=== PATIENT | female | born 1955 | race Caucasian/White ===

== ENCOUNTER 2018-08-30 23:39 | Emergency (ER) | payer OTHER, SELFPAY ==
[2018-08-30 23:41] VITALS: BP 131/78; PULSE 96; RESP 16; TEMP 36.7; O2SAT 96; BMI 23.5
[2018-08-30] MEDS: fentaNYL 100 MCG/2 ML Ampul 50 MCG IM (23:58)
[2018-08-30] MEDS: Ondansetron ODT 4 MG Tablet PO (23:58)
--- NOTE | 2018-08-31 | RAD_ITS ---
STUDY: X-RAY - RIGHT WRIST REASON FOR EXAM: Female, 62 years old. Patient fell TECHNIQUE: 3 view(s) of the wrist were obtained. COMPARISON: None. FINDINGS: There is a nondisplaced fracture at the base of the ulnar styloid. A comminuted intra-articular fracture of the distal radius with dorsal tilt of the distal fragment but good maintenance of the radiocarpal articulation. There is soft tissue swelling about the wrist. RAD/Wrist min 3 Views IMPRESSION: A nondisplaced fracture at the base of the ulnar styloid. Intra-articular comminuted dorsally angulated fracture of the distal radius Electronically Signed: Migue Biswas MD at 0:33 EST Tel , Service support ,
--- NOTE | 2018-08-31 00:51 | ED.VISSUMM ---
- ER Visit Summary Date of Service: 08/31/18 Chief Complaint: Right wrist pain History of Present Illness: The patient is a [address] Huntley. She is right-hand dominant. She reports that she was dancing and fell. She complains of an isolated injury to her right wrist. She reports she has a sharp, throbbing pain is 10 out of 10 severity. Is worsened by movement. She denies any paresthesias distally. No other injuries. No loss of consciousness. No neck, back, shoulder, left wrist, or hip pain. Physical Examination: Vitals: Stable. Afebrile. Neck: No vertebral tenderness. Full ROM without difficulty. Cleared by NEXUS criteria. Back: No vertebral tenderness. General: A&O x 3. NAD. Cardiovascular exam: Regular rate and rhythm, no murmur, rub or gallop. Respiratory exam: Chest nontender. No crepitus. Clear to auscultation bilaterally. No wheezes or stridor. Abdominal exam: Soft, nontender, nondistended, normal bowel sounds. No pain in RUQ or LUQ specifically. No peritoneal signs. Extremity: Obvious deformity and severe tenderness palpation over the distal left radius. She has no pain over her elbow. She is neurovascular intact distally. Test Results: X-ray shows a comminuted, intra-articular distal radius and ulnar styloid fracture. Emergency Department Course and Treatment: Patient was treated with fentanyl IM and Zofran p.o. Given the appearance of this fracture I do not think that it would be stable for reduction. She was placed in a sugar tong splint. Treatment Plan: Patient would like to follow-up with Dr. Koroma. She is instructed to see him within 5-7 days for another exam. She is given Percocet and Zofran. Return to the emergency department for any worsening symptoms. Disposition: To home in improved and stable condition. Impression: 1. Right distal radius/ulnar styloid fractures. 2. Sugar tong splint, fabricated. This note was generated with [employer] dictation software. It may contain incorrect words, spelling, and punctuation that were not noted in review of the chart prior to signing ED Disposition - Plan for ED Patient: Disposition: Home or Assisted Living Chief Complaint: Upper Extremity Injury Instructions: ED Fx Colles Wrist No Redu Requ Prescriptions: Oxycodone HCl/Acetaminophen [Percocet 5/325] 1 tablet PO Q6H PRN PRN 5 Days #20 tablet PRN Reason: Pain Ondansetron [Zofran Odt] 4 mg PO Q8H PRN PRN #10 tablet PRN Reason: Nausea Referrals: Clarence Koroma MD [STAFF PHYSICIAN] - 5-7 Days
[2018-08-31] MEDS: oxyCODONE 5 MG Tablet PO (01:56)
[2018-08-31] MEDS: Ondansetron ODT 4 MG Tablet PO (01:57)
[2018-08-31 02:01] VITALS: BP 124/60; PULSE 75; RESP 16; O2SAT 98
== END 2018-08-31 02:01 | disposition home or self-care (01) ==
LOC: ED 08-31 00:46
PROVIDERS: Emergency Provider Emergency Medicine; Family Provider Family Medicine; PCP Family Medicine
DX: S52.571A Other intraarticular fracture of lower end of right radius, initial encounter for closed fracture (principal); S52.614A Nondisplaced fracture of right ulna styloid process, initial encounter for closed fracture; W19.XXXA Unspecified fall, initial encounter; Y93.41 Activity, dancing; Y92.9 Unspecified place or not applicable; Y99.9 Unspecified external cause status; M35.00 Sjogren syndrome, unspecified; Z79.899 Other long term (current) drug therapy
CPT/HCPCS: 29125; 73110; 96372; 99283

== ENCOUNTER 2018-12-06 09:30 | Outpatient (RCR) | payer OTHER, SELFPAY ==
--- NOTE | 2018-10-25 08:17 | HP.OTEVAL_ITS ---
Patient's Visit Information FELICITY MACIEL is a 63 year old F, referred to Occupational Therapy by Rishi Stovall MD, with a diagnosis of right colles fx. Date of Evaluation: 10/22/18 Occupational Therapist: Alison Nguyen, STEVE/Felicia, CHT - Subjective Subjective: This 63 year old female was seen for inital OT eval following a right ORIF. PT states she fell on New years. - went to ER placed in soft cast and had sx on Sep.07. pt states she just had her cast off last week. Pt states she is limited with ADLs and IADLs at this time- states pain comes and goes and is ready to get back to her PLOF. - ADLs Dressing: Coat, Shoes Fasteners: Tie shoes, Zippers Eating: Cut food Kitchen: Chop with knife, Peel fruits & vegetables, Open jars, Open bottle caps, Lift gallon of milk, Pour from pitcher, Take dish out of oven - Pain right wrist 2 Pain Intensity Range: 0, 5 - ROM Forearm: right sup 40 pron 60 left WNL Wrist: right 25/25 left 65/[address]10 UD 15 Opposition: 6 - Strength Wood Machinist Apprentice: right 5# left 60# Lateral Pinch: right 2# left 12# Tripod Pinch: right 2# left 12# Strength Comments: pt is right handed - Sensation Thumb: right 3.61 left 283 Index: right 3.84 left 2.83 Middle: right 2.83 left 2.83 Ring: right 2.83 left 2.83 Little: right 2.83 left 2.83 - Quick DASH-Disab of Arm,Shoulder& Hand Quick DASH Score: 43.1800 - Goals Goal:: PT will demo an increase in cold rolling machine setter strength by 30# to increase independent with basic occupations of daily living to return pt to PLOF by D/C. Goal:: Pt will demo an increase in wrist ROM equal to unaffected wrist to return pt to PLOF with grooming, dressing and home mtg tasks by D/C. pt will demo a increase in forearm sup/pron by 20* to increase pts ind. with ADLs and IADls by d/c. Goal:: pt will report no pain greater than 1/10 with use of right hand for ADls and IADLs by d/c Goal:: pt will demo understanding of scar mtg by end of 2nd session. - Rehabilitation General Assessment: Pt ORIF of right colles fx on 2018. pt had cast removed on 2018. pt demo with limited right wrist, forearm ROM and functional cold rolling machine setter and pinch strength. Pt demo with slight decline in sensation to right thumb and IF. Pt would benefit from skilled OT services 1-2x week for 4-6 weeks to return pt to OF. Today pt was ed. on PROM, AROM and scar mtg. pt demo understanding of ex, and was given handout. Rehabilitation Potential: Excellent - Anticipated Interventions Anticipated Interventions: A/AAROM/PROM, Strengthening, Scar Care, Desensitization, Modalities - Visit Plan Frequency: 1-2x /Week Duration: 4-6 Weeks TEXT: Thank you for the opportunity to evaluate your patient. For Medicare and Medicare HMO plans, please review the plan of care and approve it. It will need to be FAXED BACK to us at [phone] for Medicare purposes. Please let me know if there are questions or concerns regarding this plan of care. Physician Signature: Date:
--- NOTE | 2018-12-07 07:45 | HP.OTDCSUM_ITS ---
HP - OT D/C Summary It has been my pleasure to treat FELICITY MACIEL under orders from Rishi Stovall MD, for the diagnosis of right colles fx for a total of 8 visit(s). Please see the following information for a summary of their discharge status. - Overall Improvement % Improvement: 30 - Objective Objective/Function: right thumb- 3.84. right IF/MF 3.22. in regards to pts sensation, her right thumb has decreased in sensation ability indicating a loss of sensation. pts IF and MF have improved indicating a gain in sensation. right engine maintenance mechanic 30# left is 45#. wrist 55/40. rigth forearm supination WFL. right lateral pinch 10#. right tripod pinch 10#. right thumb IP 25* and after blocking pt gained 10* to 35* of flex. pt demo a decrease in IP flex- after ed pt on blocking ex she felt it was moving better and objective findings indicate gain in her ROM of 10*. pt has progressed with with her ROM and strength and can cont. with HEP to continue her progress. Pt agree to POC. - Goals Patient Goals: Regain Mobility, Regain Strength, Decrease Pain, Improve Fine Motor Skills, Use Hand/Wrist/Arm Normally Again Goal:: PT will demo an increase in engine maintenance mechanic strength by 30# to increase independent with basic occupations of daily living to return pt to PLOF by D/C. Goal:: Pt will demo an increase in wrist ROM equal to unaffected wrist to return pt to PLOF with grooming, dressing and home mtg tasks by D/C. pt will demo a increase in forearm sup/pron by 20* to increase pts ind. with ADLs and IADls by d/c. Goal:: pt will report no pain greater than 1/10 with use of right hand for ADls and IADLs by d/c Goal:: pt will demo understanding of scar mtg by end of 2nd session. - Plan Plan: HEP D/C - D/C Information Discharge Comments: PT was seen for 8 OT sessions. Therapy challenged pts return of right wrist ROM and strength. Pt demo improvments with both and reports INd. with most ADLs and IADLs. states pinch of toothpast is difficult and feels its related to limited IP flex. therapist addressed this by ed. pt on IP blocking and ROM ex. pt demo gains in ROM following. pt is great at following her HEP and has met OT goals, was D/C with HEP for pt to cont to make gains. Pt agrees to POC. If there are questions or concerns regarding this patient's occupational therapy, please fell free to call me at [phone]. Thank you for the referral of this patient. Sincerely, Alison Nguyen, OTR/L, CHT
== END 2018-12-06 19:00 | disposition home or self-care (01) ==
LOC: OT 09:30
PROVIDERS: Family Provider Family Medicine; PCP Family Medicine; Referring Provider Orthopaedic Surgery; Visit Provider Orthopaedic Surgery
DX: S52.531D Colles' fracture of right radius, subsequent encounter for closed fracture with routine healing (principal)
CPT/HCPCS: 97110; 97140; 97166; 97530

== ENCOUNTER 2020-03-20 18:49 | Emergency (ER) | payer OTHER, SELFPAY ==
[2020-03-20 18:50] VITALS: BP 109/50; PULSE 97; RESP 20; TEMP 36.6; O2SAT 97; BMI 22.4
--- NOTE | 2020-03-20 18:56 | EKG12_ITS ---
Test Reason : DYSRHYTHMIA Blood Pressure : / mmHG Vent. Rate : 088 BPM Atrial Rate : 088 BPM P-R Int : 206 ms QRS Dur : 072 ms QT Int : 374 ms P-R-T Axes : 067 047 057 degrees QTc Int : 452 ms Normal sinus rhythm Septal infarct , age undetermined Abnormal ECG Confirmed by CHAD RENEE ([id number]), film and video editor ALE LIRA ([id number]) on 03/26/2020 12:11:21 PM Referred By: ANGELITO Confirmed By:CHAD RENEE
--- NOTE | 2020-03-20 18:56 | RAD_ITS ---
STUDY: X-RAY CHEST REASON FOR EXAM: Female, 64 years old. Cough, severe headache, chills and shaking. TECHNIQUE: AP portable COMPARISON: None. FINDINGS: The lungs are clear and expanded. There is no demonstrated pleural abnormality. Normal size heart. Normal mediastinum and kareem. Normal visualized pulmonary arteries. Normal visualized aortic arch and descending thoracic aorta. Normal visualized thoracic spine. Normal visualized ribs, clavicles, and shoulders. There is no demonstrated abnormality of the visualized soft tissue structures of the upper abdomen. RAD/Chest 1 View (Portable) IMPRESSION: Normal x-ray examination of the chest. Electronically Signed: Naveen Pina MD at 19:57 EDT , Service support ,
--- NOTE | 2020-03-20 19:10 | ED.VIS.GEN ---
History of Present Illness Chief Complaint: Headache Informant: Patient Onset: Days Context: Gradual Onset Timing: Intermittent Current Severity: Moderate Maximum Severity: Moderate Narrative: The patient is an otherwise healthy 64-year-old female that presents to the emergency department with chills, nausea, vomiting, diarrhea. The patient states her symptoms began about a week ago. She states that she had some mild nausea and vomiting. She is also had some loose watery diarrhea. She denies fever. She denies shortness of breath or cough. She states that she was feeling better, but then her symptoms returned. She is had no known exposure to COVID. She denies any other sick contacts. She denies any abdominal pain, flank pain, or other systemic symptoms. Prior similar symptoms: No Recent Illness/Hospitalization: No Past Medical History - Allergies and Home Meds Allergies/Adverse Reactions: Allergies No Known Allergies Allergy (Verified 03/20/20 18:52) Primary Care Physician: Joe Huntley MD [Primary Care Provider] - Prior records reviewed: Yes Past Medical History: None Surgical History: noncontributory Smoking Status: Never smoker Review of Systems General: Reports: Chills. Denies: Fever, Sweats Eyes: Denies: Visual changes - bilaterally, Diplopia ENT: Denies: Rhinorrhea, Sore throat Cardiovascular: Denies: Chest pain, Palpitations Respiratory: Denies: Dyspnea, Cough, Dyspnea on exertion Gastrointestinal: Reports: Nausea, Vomiting, Diarrhea. Denies: Abdominal pain, Melena, Hematochezia Genitourinary: Denies: Dysuria, Hematuria, Frequency Musculoskeletal: Reports: Myalgias. Denies: Back pain, Extremity Pain Skin: Denies: Rash, Wounds Neurological: Reports: Headache. Denies: Weakness, Numbness Physical Exam Vital Signs/Narrative: Vital Signs Temp Pulse Resp BP Pulse Ox 03/20/20 18:50 97.8 F 97 20 H 109/50 L 97 Inital Vital Signs reviewed: Yes General: Well nourished, Well developed, No Acute Distress Head: Normocephalic, Atraumatic Eyes: Perrl, EOMI ENT: Moist mucous membranes, No rhinorrhea Neck: Supple, Nontender Cardiovascular: Regular rate, Regular rhythm, No murmurs Respiratory: No distress, CTA bilaterally, Chest nontender Abdomen: Soft, Nontender, Nondistended, Normal bowel sounds Back: Nontender, Normal Inspection Extremities: Nontender, No edema Skin: Normal color, No rash Neurological: Alert, Oriented x3, Cranial nerves II-XII grossly intact, Normal Strength, Normal Sensation Psychological: Normal affect, Normal Mood ED Disposition - Plan for ED Patient: Instructions: ED Headache Unspecified Prescriptions: Ondansetron [Zofran Odt] 4 mg PO Q8H PRN PRN #10 tab PRN Reason: Nausea Prescription Printed Referrals: Joe Huntley MD [Primary Care Provider] -
[2020-03-20] MEDS: Ondansetron 4 MG/2 ML Vial IV (20:22)
[2020-03-20] MEDS: Acetaminophen 500 MG Tablet 1000 MG PO (20:23)
[2020-03-20 20:25] LABS: Absolute Lymphocyte Count 2.58 X10^3/uL (0.83-4.51); Absolute Neutrophil Count 2.1 X10^3/uL (2.0-7.7); Basophil# 0.02 X10^3/uL; Basophil% 0.4 % (0-1); Eosinophil# 0.05 X10^3/uL; Hematocrit 41.1 % (37-47); Hemoglobin 13.3 g/dL (12.0-15.0); Lymphocyte # 2.58 X10^3/ul (4.0); Lymphocyte % 49.5 % (19-41); Mean Corp Hgb Conc 32.4 g/dL (32-36); Mean Corpuscular Hgb 29.2 pg (27.0-32.0); Mean Corpuscular Volume 90.3 fL (81-99); Monocyte# 0.47 X10^3/uL; NRBC Flagged by Analyzer 0 % (0-5); Neutrophil # 2.07 X10^3/uL (2.7-7.7); Neutrophil % 39.7 % (47-70); Platelet Count 207 K/mm3 (150-450); RBC Distribution Width CV 13.2 % (11.6-14.6); RBC Distribution Width SD 43.7 fl (35.1-43.9); Red Blood Count 4.55 M/mm3 (4.2-5.4); White Blood Count 5.2 K/mm3 (4.4-11.0)
[2020-03-20 20:26] VITALS: BP 157/119; PULSE 96; RESP 32; TEMP 36.6; O2SAT 98
[2020-03-20 20:41] LABS: AST(SGOT) 28 U/L (15-37); Alanine Aminotransfer ALT/SGPT 27 U/L (13-56); Albumin, Serum 3.7 g/dL (3.2-5.0); Alkaline Phosphatase 59 U/L (45-117); Anion Gap 3 (5-15); BUN 10 mg/dL (7-18); BUN/Creat Ratio 9.8 RATIO (10-20); Calcium,Total 8.7 mg/dL (8.5-10.1); Chloride 106 mmol/L (98-107); Creatinine, Serum 1.02 mg/dL (0.55-1.02); EST Glomerular Filtration Rate 58 mL/min (>60); Est Glom Filt Rate - Afr Amer 70 mL/min (>60); Globulin 3.7 g/dL (2.2-4.2); Glucose 79 mg/dL (74-106); Potassium 4.2 mmol/L (3.5-5.1); Protein, Total 7.4 g/dL (6.4-8.2); Sodium Level 141 mmol/L (136-145)
[2020-03-20 21:53] VITALS: BP 130/76; PULSE 97; RESP 17; O2SAT 94
[2020-03-21 00:21] LABS: Reflex Lactate? Y
== END 2020-03-20 21:54 | disposition home or self-care (01) ==
PROVIDERS: Emergency Provider Emergency Medicine; PCP Family Medicine
DX: R51 Headache (principal); R11.2 Nausea with vomiting, unspecified; R19.7 Diarrhea, unspecified; R68.83 Chills (without fever)
CPT/HCPCS: 36415; 71045; 80053; 83605; 85025; 87040; 87633; 87635; 93005; 96361; 96374; 99285; G2023; J7040; A4216; J2405; U0003

== ENCOUNTER 2024-03-06 07:02 | Emergency (ER) | payer MEDICARE, OTHER, SELFPAY ==
[2024-03-06 07:02] VITALS: BP 148/85; PULSE 78; RESP 20; TEMP 36.2; O2SAT 98; BMI 22.7
[2024-03-06] MEDS: Naproxen 500 MG Tablet PO (07:24)
[2024-03-06] MEDS: HYDROcodone Bitartrate/Apap 5/325 Tablet PO (07:24)
[2024-03-06] MEDS: Penicillin Vk 250 MG Tablet 500 MG PO (07:24)
--- NOTE | 2024-03-06 07:24 | ED.VIS.DENTA ---
HPI History of Present Illness Chief Complaint: Other, Pain/Inj Detail of Chief Complaint: Dental pain that started Thursday. Informant: patient and spouse/S.O. Onset/Context/Timing Onset: Days Context: Sudden Onset Timing: Continuous and Waxes and wanes Quality: Pain and swelling lower right incisor, suspect tooth #23 and 24 Current Severity: Moderate Maximum Severity: Severe Worsened by: Nothing Relieved by: - (Nothing) Associated Symptoms Assocated Symptom - Dental: jaw swelling and face swelling; Negative for fever, cold sensitivity or hot sensitivity Narrative Narrative: Patient is a 68-year-old woman with history of Sjogren's syndrome. She called her dentist on Thursday. They were closed. She presents now because of increased pain and swelling. She denies fever. She denies history medic fever, heart murmur mitral prolapse and there is no history of SBE. She has no allergies to medication. There is no history of peptic ulcer disease or renal disease. She does not have history of hypertension. She is able to open her mouth completely however complains of discomfort. She has had no drooling. Prior similar symptoms: No Recent Illness/Hospitalization: No PFSH PFSH Medical History (Updated 03/06/24 @ 07:[address] Surjit Rocha MD) Sjogren syndrome Home Medications ?Medication ?Instructions ?Recorded ?Last Taken ?Type cevimeline 30 mg capsule 1 cap PO TID 03/06/24 Unknown History hydrocodone-acetaminophen 5-325mg 1 tab PO Q6H PRN PRN Pain 3 days 03/06/24 Unknown Rx 5mg-325mg #10 TABLETS naproxen 500 mg tablet 500 mg PO BID #14 tabs 03/06/24 Unknown Rx penicillin V potassium 500 mg 500 mg PO 4X/DAY #40 tabs 03/06/24 Unknown Rx tablet Allergy/AdvReac Type Severity Reaction Status Date / Time No Known Allergies Allergy Verified 03/20/20 18:52 Social History (Updated 03/06/24 @ 07:[address] Surjit Rocha MD) household members: spouse Smoking Status: Never smoker ROS ROS ED Constitutional Constitutional ED: Denies chills, fever(s), subjective, sweats or weight loss Eyes Eyes: Denies blurry vision or change in vision ENT ENT ED: Reports other Details: HPI narrative ; Denies ear pain, rhinorrhea or sore throat Cardiovascular Cardiovascular: Denies palpitations Respiratory/Chest Respiratory/Chest: Denies dyspnea Gastrointestinal Gastrointestinal: Denies nausea or vomiting Integumentary Reports abscess; Denies rash Allergic/Immunologic Allergic/Immunologic ED: Reports mouth swelling; Denies tongue swelling or urticaria EXAM Physical Exam Const Vital Signs: 03/06/24 07:02 Temperature 97.2 F L Temperature Source Temporal Pulse Rate 78 Respiratory Rate 20 H Blood Pressure 148/85 H Blood Pressure Mean 106 Pulse Ox 98 Oxygen Delivery Method Room Air Positive well nourished and well developed Constitutional Narrative: Blood pressure is slightly elevated. She is afebrile. General Appearance ED: well developed; Negative for NAD HEENT HEENT Narrative: There is discomfort with tapping of tooth 23 and 24. There is no fluctuance. There is no fullness floor of the mouth. There may be some slight submental lymphadenopathy. Trachea is midline. There is no inspiratory expiratory stridor. There is no drooling. tenderness; Negative for trauma Face and Sinus: Negative for sinuses nontender Mouth ED: Yes oral and palatal mucosa normal, No lips normal, Yes tongue normal, Yes salivary gland normal and No mouth trauma Mouth: oral and palatal mucosa normal, No lips normal, tongue normal, salivary gland normal and No mouth trauma Teeth and Gingiva: abnormal tooth and associated gingiva, gingiva abnormal and teeth discoloration Throat: posterior oropharynx normal Eyes PERRL and EOMs intact bilaterally General Eye ED: Negative for scleral icterus Neck No no lymphadenopathy, supple and no JVD Neck Narrative: Submental General: tenderness; Negative for normal visual inspection Resp normal respiratory effort, no retractions and clear to auscultation bilaterally Cardio regular rate, regular rhythm, S1 normal heart sound, S2 normal heart sound and no murmurs Extremity normal to inspection and no joint enlargement Neuro oriented x3 and CN's II-XII intact bilaterally Sensorium / Orientation: alert Psych mental status grossly normal Skin Skin Narrative: There is no evidence of facial cellulitis. There is swelling of the lower lip on the right side and between the lower lip and chin. There is no fluctuance. There is significant tenderness. MDM MDM MDM Narrative Medical decision making narrative: Patient has findings consistent with apical abscess. There is been no fistulization. There is no evidence at this time of Ludewig's angina. She has no trismus. Plan is antibiotic and pain medicine. She is to contact her dentist immediately. Based on history there is no concern at this time for reversible or irreversible pulpitis. History & Record Review Additional record(s) reviewed:: Prior outpatient record Discharge Plan Triage Chief Complaint: Other, Pain/Inj ED Provider: Surjit Rocha Dx/Rx/DC Orders Clinical Impression: Abscess, dental, Hx of Sjogren's disease Prescriptions: New hydrocodone-acetaminophen 5-325 mg tablet 1 tab PO Q6H PRN PRN (Reason: Pain) 3 Days Qty: 10 0RF penicillin V potassium 500 mg tablet 500 mg PO 4X/DAY Qty: 40 0RF naproxen 500 mg tablet 500 mg PO BID Qty: 14 0RF No Action cevimeline 30 mg capsule 1 cap PO TID Primary Care Provider: Joe Huntley Referrals: Joe Huntley MD [Primary Care Provider] - Activity Restrictions/Additional Instructions: 1. Contact dentist. 2. Take medication as prescribed until gone 3. If you have drooling, unable to open your mouth, difficulty speaking return immediately to the emergency department Print Language: Guatemalan Disposition Disposition: Home, Self Care
[2024-03-06 07:47] VITALS: BP 134/82; PULSE 71; RESP 18; TEMP 36.1; O2SAT 99
== END 2024-03-06 07:48 | disposition home or self-care (01) ==
LOC: ED 07:39
PROVIDERS: Emergency Provider Emergency Medicine; PCP Family Medicine; Visit Provider Emergency Medicine
DX: K04.7 Periapical abscess without sinus (principal); M35.00 Sjogren syndrome, unspecified
CPT/HCPCS: 99283